=== PATIENT | female | born 1975 | race Caucasian/White ===

== ENCOUNTER → 2017-02-11 | Outpatient (CLI) | payer OTHER | LOC: FIMAGING 07:48 | PROVIDERS: ATTEND Family Medicine | DX: I87.2 Venous insufficiency (chronic) (peripheral) (principal); I83.91 Asymptomatic varicose veins of right lower extremity; R22.41 Localized swelling, mass and lump, right lower limb ==

== ENCOUNTER 2017-05-07 07:58 | Day surgery (SDC) | payer OTHER ==
[~2017-05-07 07:58] MED LIST: NS 1,000 ML IV ONE; ONDANSETRON 4 MG/2 ML VIAL IVP ONE
[2017-05-07] MEDS ORDERED: CLINDAMYCIN 600 MG/DEXTROSE 50 ML IV ONE (08:00)
[2017-05-07] MEDS ORDERED: SODIUM TETRADECYL SULFATE 3% 2 ML VIAL IV ONE (08:22)
[2017-05-07] MEDS ORDERED: LIDO/EPI 1% **for epidural** 30 ML SDV ONE (08:22)
[2017-05-07] MEDS ORDERED: ONDANSETRON 4 MG/2 ML VIAL ONE (09:01)
[2017-05-07] MEDS ORDERED: NALOXONE HCL 0.4 MG/ML INJ ONE (09:01)
[2017-05-07] MEDS ORDERED: MIDAZOLAM 2 MG/2 ML VIAL ONE ×2 (09:01→11:03)
[2017-05-07] MEDS ORDERED: FLUMAZENIL 0.5 MG/5 ML MDV IVP ONE (09:01)
[2017-05-07] MEDS ORDERED: fentaNYL 100 MCG/2 ML INJ ONE ×2 (09:02→11:03)
[2017-05-07] MEDS ORDERED: IBUPROFEN 200 MG TAB PO ONE (12:15)
[2017-05-07] MEDS ORDERED: HYDROCODONE/APAP 5/325 TAB PO ONE (12:15)
[2017-05-07 14:53] VITALS: PULSE 71; RESP 16; TEMP 97.2
[2017-05-07 15:04] VITALS: BP 111/81; O2SAT 93
== END 2017-05-07 15:05 | disposition home or self-care (01) ==
LOC: FIMAGING 07:58
PROVIDERS: ATTEND Radiology Diagnostic Radiology
DX: I83.891 Varicose veins of right lower extremity with other complications (principal)
CPT/HCPCS: J2250; J2310; J2405; J3010